=== PATIENT | female | born 1980 | race Caucasian/White ===

== ENCOUNTER 2024-04-22 07:23 | Day surgery (SDC) | payer OTHER ==
[~2024-04-22] VITALS: Ht 162.6 cm; Wt 52.2 kg
[2024-04-22] MEDS ORDERED: fentaNYL citrate 0.05 MG/ML VIAL ONE (08:15)
[2024-04-22] MEDS ORDERED: MIDAZOLAM 2 MG/2 ML VIAL ONE (08:16)
[2024-04-22] MEDS: MIDAZOLAM 2 MG/2 ML VIAL IVP ONE (08:35)
[2024-04-22] MEDS: fentaNYL citrate 0.05 MG/ML VIAL IVP ONE (08:36)
[2024-04-22] MEDS: LIDOCAINE 2% 100 MG/5 ML UJET TP ONE (08:55)
== END 2024-04-22 10:10 | disposition home or self-care (01) ==
LOC: MDS 07:23 → MMU 07:27 → MDS 10:10
PROVIDERS: ATTEND Internal Medicine Gastroenterology
DX: R19.7 Diarrhea, unspecified (principal); D64.9 Anemia, unspecified; K57.30 Diverticulosis of large intestine without perforation or abscess without bleeding; R10.11 Right upper quadrant pain; Z79.899 Other long term (current) drug therapy; Z98.890 Other specified postprocedural states
CPT/HCPCS: 43239; 45380; J2250; J3010